=== PATIENT | male | born 1955 | race African-American/Black ===

== ENCOUNTER 2019-10-12 17:52 | Emergency (ER) | payer SELFPAY ==
[~2019-10-12] VITALS: Ht 182.9 cm; Wt 73.0 kg
[2019-10-12] MEDS ORDERED: BRIV100T PO (17:59)
[2019-10-12] MEDS ORDERED: SODIUM CHLORIDE 0.9% 1,000 ML IV ONE (18:46)
[2019-10-12 19:17] LABS: BASOPHILS % 0.6 % (0.0-2.0); EOSINOPHILS % 1.4 % (0.0-5.0); HEMATOCRIT. 37.5 % (42.0-52.0); HEMOGLOBIN. 12.6 g/dL (14.0-18.0); LYMPHOCYTES % 8.3 % (20.0-50.0); MEAN CORPUSCULAR HEMOGLOBIN 30.4 pg (28.0-32.0); MEAN CORPUSCULAR VOLUME 90.8 fL (80.0-94.0); MONOCYTES % 7.7 % (2.0-8.0); PLATELET 134 x1000/uL (130-400); RED BLOOD CELL COUNT 4.13 mill/uL (4.7-6.1); RED CELL DISTRIBUTION WIDTH 14.9 % (11.6-14.6)
[2019-10-12 19:20] LABS: CHLORIDE 109 mEq/L (98-107)
[2019-10-12 19:26] LABS: ETHANOL BLOOD < 10 mg/dL
[2019-10-12 19:29] LABS: CREATINE KINASE 367 IU/L (39-308)
[2019-10-12 19:37] LABS: CARBAMAZEPINE < 0.5 ug/mL (4-12); PHENOBARBITAL < 2.1 ug/mL (15.0-40.0); VALPROIC ACID < 3.0 ug/mL (50-100)
[2019-10-12 20:19] LABS: CLARITY URINE CLEAR (CLEAR); COLOR URINE YELLOW (YELLOW); KETONES URINE NEGATIVE (NEGATIVE); LEUKOCYTE ESTERASE URINE NEGATIVE (NEGATIVE); NITRITE URINE NEGATIVE (NEGATIVE); OCCULT BLOOD URINE NEGATIVE (NEGATIVE); PH URINE 6.5 (4.5-8.0); PROTEIN URINE 1+ (NEGATIVE); SPECIFIC GRAVITY URINE 1.022 (1.005-1.030)
[2019-10-12] MEDS ORDERED: LEVETIRACETAM 1000MG/100ML 100 ML IV ONE (20:30)
[2019-10-12 20:38] LABS: *AMPHETAMINES SCREEN URINE NEGATIVE (NEGATIVE); *BARBITURATES SCREEN URINE NEGATIVE (NEGATIVE); *BENZODIAZEPINES SCREEN URINE NEGATIVE (NEGATIVE); *COCAINE SCREEN URINE NEGATIVE (NEGATIVE); METHADONE URINE SCREEN NEGATIVE (NEGATIVE); OPIATES URINE SCREEN NEGATIVE (NEGATIVE); PHENCYCLIDINE URINE SCREEN NEGATIVE (NEGATIVE)
[2019-10-12 20:39] LABS: CANNABINOID URINE SCREEN NEGATIVE (NEGATIVE)
[2019-10-12] MEDS ORDERED: CARBAMAZEPINE 200MG TABLET PO ONE (21:00)
[2019-10-12] MEDS ORDERED: ENALAPRIL 2.5MG/2ML VIAL 2ML IV ONE (21:15)
[2019-10-12] MEDS ORDERED: ENALAPRIL 1.25MG/ML VIAL 1ML IV NR (21:31)
[2019-10-12 22:13] VITALS: BP 170/78
== END 2019-10-12 23:28 | disposition home or self-care (01) ==
LOC: ER 17:52
DX: R56.9 Unspecified convulsions (principal); I10 Essential (primary) hypertension; Z91.19 Patient's noncompliance with other medical treatment and regimen
CPT/HCPCS: 36415; 70450; 80053; 80156; 80165; 80184; 80185; 80305; 80320; 81003; 82550; 82962; 85025; 99285; J7030; J3490; G0480